=== PATIENT | female | born 1945 | race Caucasian/White ===

== ENCOUNTER 2017-07-19 09:18 | Outpatient (CLI) | payer OTHER | END 2017-07-19 11:18 | disposition home or self-care (01) | LOC: ECT 09:18 | DX: F33.2 Major depressive disorder, recurrent severe without psychotic features (principal); F34.1 Dysthymic disorder; E78.5 Hyperlipidemia, unspecified; M81.0 Age-related osteoporosis without current pathological fracture; F41.9 Anxiety disorder, unspecified ==